=== PATIENT | male | born 1975 | race African-American/Black ===

== ENCOUNTER 2023-11-24 22:54 | Emergency (ER) | payer OTHER ==
[~2023-11-24] VITALS: Ht 172.7 cm; Wt 84.1 kg
[2023-11-24 23:08] VITALS: BP 149/83; PULSE 94; RESP 20; TEMP 98.5
== END 2023-11-25 02:27 | disposition left against medical advice (07) ==
LOC: EMS 22:58
DX: B35.3 Tinea pedis (principal); Z53.21 Procedure and treatment not carried out due to patient leaving prior to being seen by health care provider

== ENCOUNTER 2023-12-07 14:55 | Emergency (ER) | payer OTHER ==
[~2023-12-07] VITALS: Ht 172.7 cm; Wt 82.0 kg
[2023-12-07 15:01] VITALS: BP 141/117; PULSE 95; RESP 20; TEMP 98.9; O2SAT 96
[2023-12-07] MEDS ORDERED: SULF-261 PO (15:55)
[2023-12-07] MEDS ORDERED: CLOT15CR29 TP (15:55)
== END 2023-12-07 16:07 | disposition home or self-care (01) ==
LOC: EMS 14:55
DX: L02.213 Cutaneous abscess of chest wall (principal); B35.3 Tinea pedis; I10 Essential (primary) hypertension; F17.210 Nicotine dependence, cigarettes, uncomplicated; F12.90 Cannabis use, unspecified, uncomplicated
CPT/HCPCS: 99283